=== PATIENT | female | born 1975 ===

== ENCOUNTER → 2019-06-11 12:10 | Outpatient (CLI) | payer MEDICARE, SELFPAY ==
[2019-06-11 12:49] LABS: Add Manual Diff / Slide Review NO; Basophils Absolute Auto 100 /uL (0-100); Eosinophils Absolute Auto 200 /uL (0-450); Eosinophils Percent Auto 2.4 % (2-4); Hematocrit 43.6 % (36-46); Hemoglobin 14.3 g/dL (12.0-16.0); Lymphocytes Absolute Auto 2600 /uL (1100-4500); Lymphocytes Percent Auto 32.4 % (25-40); Mean Corpuscular HGB Conc 32.9 % (30-36); Mean Corpuscular Hemoglobin 29.1 PG (26-34); Mean Corpuscular Volume 88.5 fL (80-100); Monocytes Absolute Auto 700 /uL (0-900); Monocytes Percent Auto 8.5 % (3-14); Neutrophils Absolute Auto 4400 /uL (1500-7000); Neutrophils Percent Auto 55.7 % (50-75); Platelet Count 315 X10^3/uL (150-400); Red Blood Cell Count 4.93 X10^6/uL (4.0-5.2); Red Cell Distribution Width 14.6 % (11.6-14.8); White Blood Cell Count 7.9 X10^3/uL (4.5-11.0)
[2019-06-11 13:38] LABS: Alanine Aminotransferase 53 IU/L (9-52); Albumin Globulin Ratio 1.1 (1.0-2.8); Alkaline Phosphatase 126 U/L (38-126); Aspartate Aminotransferase 53 IU/L (14-36); Bilirubin Total 0.6 mg/dL (0.2-1.3); Blood Urea Nitrogen 11 mg/dL (7-17); Carbon Dioxide 24 mmol/L (22-32); Chloride 106 mmol/L (98-107); Cholesterol 175 mg/dL (140-199); Estimated Glomerular Filt Rate > 60.0 mL/min (>60); Globulin 3.7 g/dL (1.7-4.1); Glucose 106 mg/dL (70-100); HDL Cholesterol 41 mg/dL (40-60); HEMOLYSIS 26 (0-50); LDL Cholesterol Calculated 116 mg/dL (<100); Potassium 4.2 mmol/L (3.4-5.1); Sodium 139 mmol/L (137-145); Total Protein 7.7 g/dL (6.3-8.2); Triglycerides 91 mg/dL (35-150)
== END ==
PROVIDERS: PCP Family Medicine; Visit Provider Family Medicine
DX: E03.9 Hypothyroidism, unspecified (principal)
CPT/HCPCS: 36415; 80053; 80061; 84443; 85025

== ENCOUNTER → 2020-03-23 17:05 | Outpatient (CLI) | payer MEDICARE, SELFPAY ==
[2020-03-23 19:15] LABS: TSH w/ Reflex to FT4 6.07 uIU/mL (0.47-4.68)
[2020-03-24 15:47] LABS: HIV 1 & 2 Ab/Ag 4th Gen Combo NEGATIVE (NEGATIVE)
== END ==
PROVIDERS: PCP Family Medicine; Referring Provider Family Medicine; Visit Provider Family Medicine
DX: Z11.3 Encounter for screening for infections with a predominantly sexual mode of transmission (principal); E03.9 Hypothyroidism, unspecified
CPT/HCPCS: 36415; 84439; 84443; 87389

== ENCOUNTER → 2020-05-25 14:28 | Outpatient (CLI) | payer MEDICARE, SELFPAY ==
[2020-05-28 05:39] LABS: COVID19 Sendout Not Detected (Not Detected)
== END ==
PROVIDERS: PCP Family Medicine; Visit Provider Physician Assistant
DX: R06.02 Shortness of breath (principal)
CPT/HCPCS: 87635

== ENCOUNTER → 2020-05-30 09:53 | Outpatient (CLI) | payer MEDICARE, SELFPAY | PROVIDERS: PCP Family Medicine; Visit Provider Family Medicine | DX: R21 Rash and other nonspecific skin eruption (principal) | CPT/HCPCS: 87070; 87205 ==

== ENCOUNTER 2020-10-28 12:25 | Emergency (ER) | payer MEDICARE, MEDICAID, SELFPAY ==
[2020-10-28 12:43] VITALS: BP 168/88; PULSE 99; RESP 15; TEMP 36.9; O2SAT 98; BMI 61.2
--- NOTE | 2020-10-28 12:56 | PC.NURSE ---
At triage pt was asked how long the rash has been which she stated off and on for a year. Concerning her sore throat she stated it has been months. I asked her how many months it has been which she stated I don't know. I then said do you think it has been a month or more like 9 months which pt then stated I don't know. Pt would not give consent for test if needed, Pt states I don't feel comfortable talking to you about it. When I asked the patient if she was safe where she lives she stated I don't feel comfortable talking to you about it.
--- NOTE | 2020-10-28 14:06 | PC.NURSE ---
Asked to go out and speak with patient about her service dog. Pt reports that her service dog (arrived in a kennel per registration staff) was walking a took a crap on the floor. she states it was an accident. I asked where the dog was and she said she placed it in the car. pt was also questioned as to what type of service the dog performs. She states lots of service. She reported it will bark when I am in danger. Pt asked for the policy that I was holding to review. I handed the policy to the patient and asked her kindly to keep the dog in the car. She reported that the staff at the front registration desk are rude and the ER staff is rude. also states people are rude the way they walk I reassured her that we are following [facility]'s Policy and I am sorry that she feels that the hospital staff is rude. I told her to contact the [facility] if she has any concerns that the Er staff or registration can't answer. I gave her my name. I also informed patient of the wait time and the she should be back shortly. I informed her of patient acuity, ambulances, helicopter and other events that might cause her wait time to change. pt verbalized an understanding of the above.
--- NOTE | 2020-10-28 14:24 | PC.NURSE ---
Addendum entered by Camilla Walter R.N. 10/28/20 14:33: Patients states all of these symptoms have been ongoing since last September when was resting in bed and felt a hand come and grab her neck and then my lungs collapsed. Patient states she has seen her PCP Dr Rodas for the rash and shortness or breath and has finished a course of acyclovir and Amoxicillin but he is not a real doctor because he went to school in [facility] so I need to be seen here. Original Note: During assessment of patient, patient asked will you stand farther away from me I cannot communicate with you if you stand too close. Readjusted across room but explained to patient that need to be able to assess her complaints. Patient then asked Please can you stand with you legs all the way together and not shoulder width apart. Patient stated has had rash, sore throat, and SOB since last September. Has been treated for shingles and scabies and states I thought it was an AIDs rash but I do not drink blood or have sex but I still asked to be tested for AIDs. Patient reported this test was negative. Patient denied itching or pain from rash. Patient would not let me assess her throat, stated I only want the doctor to do that. Patient states I am really here because I need a bacteria test on my skin, a covid test, and my throat swabbed. No visible signs of increased work of breathing, skin dry and pink, patient does not appear to be in any visible distress. Small, scaly rash noted to center of chest and dorsal surface of bilateral hands.
[2020-10-28 15:47] LABS: COVID19 -Nasal RAPID Negative (Negative)
--- NOTE | 2020-10-28 18:56 | ED.SKABFB ---
HPI - Skin/Abscess/Foreign Bdy <PERCY Rainey - Last Filed: 10/28/20 19:34> General Chief complaint: Skin/Abscess/Foreign Body Stated complaint: rash and sob Time Seen by Provider: 10/28/20 14:37 Source: patient Mode of arrival: Ambulatory Limitations: no limitations History of Present Illness HPI narrative: The patient is a 45-year-old nonsmoker with history of schizophrenia and personality disorder who presents with a chief complaint of a rash that is been ongoing for the past several months. She states that she has been treated for scabies, cultures have been taken, also would like a test for coronavirus. She states that she has a sore throat, is also concerned about strep throat. She also is concerned about a rash on her feet, and states that she has a flesh eating bacteria. She denies any fevers, complains of muscle aches and chills. She does mention significant weight gain several years ago, and states that since she has gained 100 lb, her ankles have been slightly swollen. She denies any chest pain, states that she has felt tired. She states that she has been to her primary care provider multiple times. She also complains of bilateral ear pain. Related Data Previous Rx's Medication Instructions Recorded levothyroxine 88 mcg capsule 88 mcg PO DAILY #90 cap 06/17/19 permethrin 5 % topical cream 1 applictn TOP Q14D #120 gram 04/11/20 amoxicillin 875 mg tablet 875 mg PO BID #14 tab 07/20/20 acyclovir 400 mg tablet 400 mg PO QID #40 tab 10/10/20 shingles immunization #1 ea 10/10/20 Allergies Allergy/AdvReac Type Severity Reaction Status Date / Time No Known Drug Allergies Allergy Verified 10/28/20 12:43 Review of Systems <PERCY Rainey - Last Filed: 10/28/20 19:34> Review of Systems Narrative: GENERAL: Denies chills, fatigue, malaise, fever, sweats. HEENT: See HPI RESPIRATORY: See HPI CARDIOVASCULAR: Denies chest pain, palpitations, orthopnea, edema, GASTROINTESTINAL: Denies nausea, vomiting, abdominal pain, diarrhea, constipation, melena. : Denies dysuria, frequency, incontinence, hematuria, urinary retention. MUSCULOSKELETAL: denies weakness, joint pain, or bony pain SKIN: Denies rash, skin lesions, or other NEUROLOGIC: Denies weakness, headache, numbness, change in speech, confusion, seizures, incoordination. PSYCHIATRIC: No concerning psychosocial issues. 12 point review of systems is negative except for those stated above 12 point review of systems is negative except for those stated above Patient History <PERCY Rainey - Last Filed: 10/28/20 19:34> Medical History (Updated 10/28/20 @ 16:09 by PERCY Rainey) Shortness of breath Skin rash Surgical History (Updated 06/27/18 @ 15:55 by Nita Lake) Status post hysterectomy (02/15/10) Status post surgery (10/04/09) Social History Smoking Status: Never smoker alcohol intake: never substance use type: does not use Smoking Status: Never smoker alcohol intake frequency: other Substance Use Type: does not use Exam <PERCY Rainey - Last Filed: 10/28/20 19:34> Narrative Exam Narrative: GENERAL: This is a well-nourished, well-developed patient, in no acute distress HEAD: Atraumatic. Normocephalic. No temporal or scalp tenderness. EYES: Pupils equal round and reactive. Extraocular motions intact. No scleral icterus. No injection or drainage. ENT: Nose without bleeding, purulent drainage or septal hematoma. Throat with erythema, but no tonsillar hypertrophy or exudate. Uvula midline. Airway patent. Bilateral TMs pearly linton NECK: Trachea midline. No JVD or lymphadenopathy. Supple, nontender, no meningeal signs. CARDIOVASCULAR: Regular rate and rhythm RESPIRATORY: Clear to auscultation. Breath sounds equal bilaterally. No wheezes, rales, or rhonchi. No cough. No increased respiratory effort. No axis her muscle use. GASTROINTESTINAL: Abdomen soft, non-tender, nondistended. No hepato-splenomegaly, or palpable masses. No guarding. EXTREMITIES: No clubbing, cyanosis, or edema. No joint tenderness, effusion noted. Positive pedal pulses. Capillary refill less than 2 seconds all toes bilateral feet NEURO: AOx3. SKIN: Exam is rash noted over bilateral forearms and chest. No crusting or drainage noted. No rash on feet noted. Initial Vital Signs Initial Vital Signs: Vital Signs Temperature 98.4 F 10/28/20 12:43 Pulse Rate 99 H 10/28/20 12:43 Respiratory Rate 15 10/28/20 12:43 Blood Pressure 168/88 H 10/28/20 12:43 Pulse Oximetry 98 10/28/20 12:43 <Lety Rivera DO - Last Filed: 10/28/20 19:38> Initial Vital Signs Initial Vital Signs: Vital Signs Temperature 98.4 F 10/28/20 12:43 Pulse Rate 99 H 10/28/20 12:43 Respiratory Rate 15 10/28/20 12:43 Blood Pressure 168/88 H 10/28/20 12:43 Pulse Oximetry 98 10/28/20 12:43 Scores <PERCY Rainey - Last Filed: 10/28/20 19:34> GCS Dada coma scale eye opening: Spontaneous [place] coma scale verbal response: Orientated Dada coma scale motor response: Obey commands Dada coma scale total score: 15 Course <PERCY Rainey - Last Filed: 10/28/20 19:34> Orders Ordered: ED Orders 10/28/20 15:15 COVID19 Stat Throat Culture Stat Wound Culture and Gram Stain Stat Wound Culture and Gram Stain Stat Vital Signs Vital signs: Vital Signs - 8 hr 10/28/20 12:43 Temperature 98.4 F Pulse Rate 99 H Respiratory Rate 15 Blood Pressure 168/88 H Pulse Oximetry 98 <Lety Rivera DO - Last Filed: 10/28/20 19:38> Orders Ordered: ED Orders 10/28/20 15:15 COVID19 Stat Throat Culture Stat Wound Culture and Gram Stain Stat Wound Culture and Gram Stain Stat Vital Signs Vital signs: Vital Signs - 8 hr 10/28/20 12:43 Temperature 98.4 F Pulse Rate 99 H Respiratory Rate 15 Blood Pressure 168/88 H Pulse Oximetry 98 MDM - Skin/Abscess/Foreign Bdy <PERCY Rainey - Last Filed: 10/28/20 19:34> Differential Diagnosis Differential diagnosis: Likely abscess of skin or subcutaneous tissue, cellulitis, eczema and impetigo Lab Data Attestation: I reviewed the patient's lab results. Labs: Lab Results 10/28/20 Range/Units 15:15 COVID-19 PCR Negative (Negative) Point of Care Testing Rapid Strep A Negative MDM Narrative Medical decision making narrative: The patient is a 45-year-old male who presents with a chief complaint of rash, sore throat, ear pain. She has no acute bacterial etiology on exam. She does negative for coronavirus a negative for strep. Throat culture was taken and I discussed that this will result in a few days. She appears overall very well, but does perseverate about flesh eating bacteria, which I see no evidence of. She requested skin cultures which I was able to take, though I discussed that given that she does not have drainage I doubt that anything will come up on them. I encouraged her to follow up with primary care provider, a reached out to his office and they will contact her for an appointment early next week. Discussed at length coming back to the ER for acute concerns. Patient has no questions or concerns upon discharge and states understanding return precautions as well as follow-up care. <Lety Rivera, DO - Last Filed: 10/28/20 19:38> Lab Data Labs: Lab Results 10/28/20 Range/Units 15:15 COVID-19 PCR Negative (Negative) Point of Care Testing Rapid Strep A Negative Discharge Plan Departure Patient Disposition: Home Clinical Impression: Rash Pharyngitis Qualifiers: Pharyngitis/tonsillitis etiology: unspecified etiology Qualified Code(s): J02.9 - Acute pharyngitis, unspecified Instructions: DI for Pharyngitis/Tonsillopharyngitis -- Adult, DI for Viral Pharyngitis Activity Restrictions/Additional Instructions: Thank you for trusting us with your care today. As discussed, your coronavirus test resulted negative. This does not exclude early infection, and please continue current precautions. Your rapid strep also tested negative the throat culture will result in a few days. We will call you if it comes back positive. Your skin cultures will take a few days to come back. Dr Rodas's office will reach out to you with an appointment. I spoke with the nurse Jo Ann today. Please follow-up with primary care next few days. Please back to the ER for acute concerns Prescriptions: No Action levothyroxine 88 mcg capsule 88 mcg PO DAILY Qty: 90 RF: 3 permethrin 5 % cream 1 applictn TOP Q14D Qty: 120 RF: 1 amoxicillin 875 mg tablet 875 mg PO BID Qty: 14 RF: 0 acyclovir 400 mg tablet 400 mg PO QID Qty: 40 RF: 0 (DME) shingles immunization Qty: 1 RF: 0 Referrals: Junior Rodas MD [Primary Care Provider] -
== END 2020-10-28 16:13 | disposition home or self-care (01) ==
PROVIDERS: Emergency Provider Nurse Practitioner Family; PCP Family Medicine
DX: J02.9 Acute pharyngitis, unspecified (principal); R21 Rash and other nonspecific skin eruption
CPT/HCPCS: 87070; 87077; 87147; 87186; 87205; 87635; 87880; 99281; 99283

== ENCOUNTER → 2021-04-19 07:53 | Outpatient (CLI) | payer MEDICARE, MEDICAID, SELFPAY | PROVIDERS: PCP Family Medicine; Visit Provider Physician Assistant | DX: R21 Rash and other nonspecific skin eruption (principal) | CPT/HCPCS: 87070; 87075; 87077; 87147; 87186; 87205 ==

== ENCOUNTER → 2021-06-02 09:04 | Outpatient (CLI) | payer MEDICARE, MEDICAID, SELFPAY ==
[2021-06-02 09:23] LABS: Add Manual Diff / Slide Review NO; Basophils Absolute Auto 100 /uL (0-100); Eosinophils Absolute Auto 200 /uL (0-450); Eosinophils Percent Auto 2.5 % (2-4); Hematocrit 43.1 % (36-46); Hemoglobin 14.2 g/dL (12.0-16.0); Lymphocytes Absolute Auto 2800 /uL (1100-4500); Mean Corpuscular HGB Conc 32.9 % (30-36); Mean Corpuscular Hemoglobin 29.4 PG (26-34); Mean Corpuscular Volume 89.4 fL (80-100); Monocytes Absolute Auto 600 /uL (0-900); Monocytes Percent Auto 6.5 % (3-14); Neutrophils Absolute Auto 5600 /uL (1500-7000); Platelet Count 310 X10^3/uL (150-400); Red Blood Cell Count 4.81 X10^6/uL (4.0-5.2); Red Cell Distribution Width 14.5 % (11.6-14.8); White Blood Cell Count 9.3 X10^3/uL (4.5-11.0)
[2021-06-02 10:23] LABS: Alanine Aminotransferase 41 IU/L (<35); Albumin 3.8 g/dL (3.5-5.0); Albumin Globulin Ratio 1.1 (1.0-2.8); Alkaline Phosphatase 112 U/L (38-126); Aspartate Aminotransferase 44 IU/L (14-36); BUN Creatinine Ratio 26.5 (6-22); Bilirubin Total 0.7 mg/dL (0.2-1.3); Blood Urea Nitrogen 13 mg/dL (7-17); Calcium 9.2 mg/dL (8.4-10.2); Carbon Dioxide 23 mmol/L (22-32); Chloride 106 mmol/L (98-107); Cholesterol 175 mg/dL (140-199); Estimated Glomerular Filt Rate > 60.0 mL/min (>60); Globulin 3.4 g/dL (1.7-4.1); Glucose 100 mg/dL (70-100); HDL Cholesterol 52 mg/dL (40-60); HEMOLYSIS < 15 (0-50); LDL Cholesterol Calculated 105 mg/dL (<100); Potassium 4.4 mmol/L (3.4-5.1); Sodium 136 mmol/L (137-145); Total Protein 7.2 g/dL (6.3-8.2); Triglycerides 91 mg/dL (35-150)
[2021-06-02 11:00] LABS: Hepatitis B Surface Antigen NEGATIVE s/c (NEGATIVE)
[2021-06-02 11:04] LABS: HIV 1 & 2 Ab/Ag 4th Gen Combo NEGATIVE (NEGATIVE)
[2021-06-02 11:25] LABS: Free T4, Direct Thyroxine 0.97 ng/dL (0.78-2.19)
== END ==
PROVIDERS: PCP Family Medicine; Referring Provider Family Medicine; Visit Provider Family Medicine
DX: E03.9 Hypothyroidism, unspecified (principal); E66.01 Morbid (severe) obesity due to excess calories; R21 Rash and other nonspecific skin eruption; Z68.43 Body mass index [BMI] 50.0-59.9, adult
CPT/HCPCS: 36415; 80053; 80061; 84439; 84443; 85025; 87340; 87389

== ENCOUNTER → 2021-10-29 14:40 | Outpatient (CLI) | payer MEDICARE, SELFPAY ==
[2021-10-29 15:23] LABS: COVID19 -Nasal RAPID Negative (Negative)
== END ==
PROVIDERS: PCP Family Medicine; Referring Provider Physician Assistant; Visit Provider Physician Assistant
DX: R05.9 Cough, unspecified (principal); R06.02 Shortness of breath; R53.83 Other fatigue
CPT/HCPCS: 87635

== ENCOUNTER 2021-11-03 10:00 | Emergency (ER) | payer MEDICARE, SELFPAY ==
[2021-11-03 10:03] VITALS: BP 164/100; PULSE 99; RESP 22; TEMP 36.6; O2SAT 96; BMI 62.6
--- NOTE | 2021-11-03 10:07 | DI.RAD.S_ITS ---
PROCEDURE: XR CHEST 2V INDICATIONS: chest congestion / cough. TECHNIQUE: 2 views of the chest were acquired. COMPARISON: [facility], , CHEST 2 VIEW, 05/31/2008, 20:13. FINDINGS: Surgical changes and devices: None. Lungs and pleura: Lungs are clear. No pleural effusions or pneumothorax. Mediastinum: Mediastinal contours are normal. Heart size is normal. Bones and chest wall: No suspicious bony abnormalities. Persistent slight elevation of the right diaphragm. IMPRESSION: No acute cardiopulmonary abnormality. Dictated by: Efren Bennett M.D. on 11/03/2021 at 11:13 Approved by: Efren Bennett M.D. on 11/03/2021 at 11:13
[2021-11-03 11:15] VITALS: BP 134/82; PULSE 82; RESP 15; O2SAT 95
[2021-11-03 11:30] VITALS: BP 137/77; PULSE 77; RESP 13; O2SAT 95
[2021-11-03] MEDS: ACETAMINOPHEN 325 MG TABLET 975 MG PO (11:35)
[2021-11-03 11:38] LABS: Adenovirus Not Detected (Not Detect); B. parapertussis Not Detected (Not Detecte); Bordetella pertussis Not Detected (Not Detecte); Chlamydophila pneumoniae Not Detected (Not Detect); Coronavirus 229E Not Detected (Not Detect); Coronavirus HKU1 Not Detected (Not Detect); Coronavirus NL 63 Not Detected (Not Detect); Coronavirus OC43 Not Detected (Not Detect); Human Metapneumovirus Not Detected (Not Detect); Human Rhinovirus/Enterovirus Not Detected (Not Detect); Influenza A Not Detected (Not Detect); Influenza B Not Detected (Not Detect); Mycoplasma pneumoniae Not Detected (Not Detect); Parainfluenza Virus 1 Not Detected (Not Detect); Parainfluenza Virus 2 Not Detected (Not Detect); Parainfluenza Virus 3 Not Detected (Not Detect); Parainfluenza Virus 4 Not Detected (Not Detect); Respiratory Syncytial Virus Detected (Not Detect); SARS- CoV-2 Not Detected (Not Detecte)
[2021-11-03 12:00] VITALS: BP 116/71; PULSE 71; RESP 21; O2SAT 92
--- NOTE | 2021-11-03 12:12 | ED.SOB ---
HPI - SOB/Dyspnea <Gian Long PA-C - Last Filed: 11/03/21 19:29> General Chief Complaint: Shortness of Breath/Dyspnea Stated Complaint: Poss pneumonia, trouble breathing Time Seen by Provider: 11/03/21 11:55 Source: patient Mode of arrival: Ambulatory Limitations: no limitations History of Present Illness HPI Narrative: Patient is a 46-year-old female presenting to the emergency department today for an evaluation of shortness of breath. Patient states that she began feeling sick approximately 2 weeks ago. She was seen at the walk-in clinic on Saturday and had a negative COVID test. She presents to the emergency department today with congestion, dyspnea, fever, cough, rhinorrhea, shortness of breath with activity, headache, rash, chills, and 1 episode of nonbloody nonbilious vomiting this morning. She denies abdominal pain, diarrhea, hematemesis, hemoptysis, hematochezia, dysuria, hematuria. No other concerns voiced at this time. Patient states that she has spent time with her grandchild who has been sick recently. Related Data Previous Rx's Medication Instructions Recorded levothyroxine 112 mcg capsule 112 mcg PO DAILY #90 cap 10/09/21 Allergies Allergy/AdvReac Type Severity Reaction Status Date / Time No Known Drug Allergies Allergy Verified 11/03/21 10:06 Review of Systems <Gian Long PA-C - Last Filed: 11/03/21 19:29> Constitutional Constitutional: Reports chills, Denies fatigue, Reports fever(s), Denies frequent falls and Denies weakness Eyes Eyes: Denies loss of vision ENT Ears, Nose, Mouth, and Throat: Denies change in voice, Denies dizziness, Denies ear discharge, Denies otalgia, Reports nasal congestion, Reports nasal discharge (Runny nose), Denies neck pain, Reports sore throat and Denies throat swelling Cardiovascular Cardiovascular: Denies chest pain, Denies diaphoresis, Denies irregular heart rhythm, Denies lightheadedness, Denies palpitations, Reports dyspnea on exertion and Denies orthopnea Respiratory Respiratory: Reports cough, Reports dyspnea on exertion, Denies wheezing and Reports other (Pain with deep inspiration) Gastrointestinal Gastrointestinal: Denies abdominal pain, Denies change in bowel habits, Denies diarrhea, Denies nausea and Reports vomiting Genitourinary Genitourinary: Denies hematuria, Denies flank pain, Denies urinary incontinence and Denies urinary urgency Musculoskeletal Musculoskeletal: Denies back pain, Denies muscle weakness, Denies neck pain, Denies numbness and Denies tingling Integumentary/Breasts Skin/Breast: Denies pruritus, Denies erythema, Reports rash and Denies wounds Neurologic Neurologic: Denies behavioral changes, Denies confusion, Denies dizziness, Denies frequent falls, Denies loss of vision, Denies numbness, Denies tingling and Denies weakness Psychiatric Psychiatric: Denies behavioral changes and Denies confusion Endocrine Endocrine: Denies fatigue and Denies palpitations Allergic/Immunologic Allergic/Immunologic: Denies throat swelling and Denies wheezing Patient History <Gian Long PA-C - Last Filed: 11/03/21 19:29> Medical History Shortness of breath Skin rash Surgical History Status post hysterectomy (02/15/10) Status post surgery (10/04/09) Social History Smoking Status: Never smoker alcohol intake: never substance use type: does not use Smoking Status: Never smoker alcohol intake frequency: other Substance Use Type: does not use Exam <Gian Long PA-C - Last Filed: 11/03/21 19:29> Narrative Exam Narrative: GENERAL: 46 year old patient appears stated age. Well-developed patient, in mild distress. HEAD: Atraumatic. Normocephalic. EYES: Pupils equal round and reactive. Extraocular motions intact. No scleral icterus. No injection or drainage. ENT: Nose without bleeding, purulent drainage. Throat with mild erythema, no tonsillar hypertrophy or exudate. Airway patent. Uvula midline. No abscess formation appreciated throughout the oral mucosa. NECK: Trachea midline. Non tender CARDIOVASCULAR: Regular rate and rhythm without murmurs, gallops, or rubs. RESPIRATORY: Clear to auscultation. Breath sounds equal bilaterally. No wheezes, rales, or rhonchi. GASTROINTESTINAL: Abdomen soft, non-tender, nondistended. EXTREMITIES: No edema or joint tenderness. BACK: Nontender without deformity or crepitance. No flank tenderness. NEURO: AOx3. SKIN: No rash or erythema of visible areas Initial Vital Signs Initial Vital Signs: Vital Signs Temperature 97.8 F 11/03/21 10:03 Pulse Rate 99 H 11/03/21 10:03 Respiratory Rate 22 11/03/21 10:03 Blood Pressure 164/100 H 11/03/21 10:03 Pulse Oximetry 96 11/03/21 10:03 <Palma Mark DO - Last Filed: 11/04/21 06:55> Initial Vital Signs Initial Vital Signs: Vital Signs Temperature 97.8 F 11/03/21 10:03 Pulse Rate 99 H 11/03/21 10:03 Respiratory Rate 22 11/03/21 10:03 Blood Pressure 164/100 H 11/03/21 10:03 Pulse Oximetry 96 11/03/21 10:03 Course <Gian Long PA-C - Last Filed: 11/03/21 19:29> Course Course Narrative: Respiratory panel, chest x-ray, rapid strep ordered. Orders Ordered: Discontinued Medications Acetaminophen (Acetaminophen 325 Mg Tablet) 975 mg PO NOW ONE Stop: 11/03/21 11:33 Last Admin: 11/03/21 11:35 Dose: 975 mg Documented by: JADA Vital Signs Vital signs: Vital Signs - 8 hr 11/03/21 11:30 11/03/21 12:00 11/03/21 12:30 Pulse Rate 77 71 76 Respiratory Rate 13 21 13 Blood Pressure 137/77 116/71 126/74 Pulse Oximetry 95 92 95 <Palma Mark DO - Last Filed: 11/04/21 06:55> Orders Ordered: Discontinued Medications Acetaminophen (Acetaminophen 325 Mg Tablet) 975 mg PO NOW ONE Stop: 11/03/21 11:33 Last Admin: 11/03/21 11:35 Dose: 975 mg Documented by: JADA Vital Signs Vital signs: Vital Signs - 8 hr 11/03/21 11:30 11/03/21 12:00 11/03/21 12:30 Pulse Rate 77 71 76 Respiratory Rate 13 21 13 Blood Pressure 137/77 116/71 126/74 Pulse Oximetry 95 92 95 MDM - SOB/Dyspnea <MELLO Perez Last Filed: 11/03/21 19:29> Lab Data Labs: Lab Results 11/03/21 Range/Units 10:10 Chlamy pneumoniae PCR Not detected (Not Detect) Adenovirus (PCR) Not detected (Not Detect) B. pertussis DNA (PCR) Not detected (Not Detecte) B.parapertussis DNA PCR Not detected (Not Detecte) Coronavirus OC43 (PCR) Not detected (Not Detect) Coronavirus HKU1 (PCR) Not detected (Not Detect) Coronavirus 229E (PCR) Not detected (Not Detect) SARS-CoV-2 (PCR) Not detected (Not Detecte) Coronavirus NL63 (PCR) Not detected (Not Detect) Human Metapneumovir PCR Not detected (Not Detect) Influenza Type A (PCR) Not detected (Not Detect) Influenza Type B (PCR) Not detected (Not Detect) M. pneumoniae (PCR) Not detected (Not Detect) Parainfluenza 1 (PCR) Not detected (Not Detect) Parainfluenza 2 (PCR) Not detected (Not Detect) Parainfluenza 3 (PCR) Not detected (Not Detect) Parainfluenza 4 (PCR) Not detected (Not Detect) RSV (PCR) Detected H (Not Detect) Entero/Rhino (PCR) Not detected (Not Detect) Point of Care Testing Rapid Strep A Negative Imaging Data Chest x-ray: Radiologist's Impression: PROCEDURE:? XR CHEST 2V ? INDICATIONS:? chest congestion / cough. ? TECHNIQUE:? 2 views of the chest were acquired.? ? COMPARISON:? [facility], CHEST 2 VIEW, 05/31/2008, 20:13. ? FINDINGS:? ? Surgical changes and devices:? None.? ? Lungs and pleura:? Lungs are clear.? No pleural effusions or pneumothorax.? ? Mediastinum:? Mediastinal contours are normal.? Heart size is normal.? ? Bones and chest wall:? No suspicious bony abnormalities.? Persistent slight elevation of the right diaphragm.? ? IMPRESSION:? No acute cardiopulmonary abnormality. ? ? Dictated by: Efren Bennett M.D. on 11/03/2021 at 11:13 ? ? Approved by: Efren Bennett M.D. on 11/03/2021 at 11:13 ? MDM Narrative Medical decision making narrative: To consider COVID-19 versus upper respiratory infection versus strep pharyngitis versus viral pharyngitis versus pneumonia. Overall physical examination history are reassuring. COVID test on Saturday walk-in clinic was negative, additionally rapid strep returned negative here in the emergency department today. Discussed the results of respiratory panel with patient and discussed diagnosis RSV infection. At this time patient feels comfortable being discharged home after discussion proper symptomatic treatment. Strict return precautions discussed with patient prior to discharge. <Palma Mark, DO - Last Filed: 11/04/21 06:55> Lab Data Labs: Lab Results 11/03/21 Range/Units 10:10 Chlamy pneumoniae PCR Not detected (Not Detect) Adenovirus (PCR) Not detected (Not Detect) B. pertussis DNA (PCR) Not detected (Not Detecte) B.parapertussis DNA PCR Not detected (Not Detecte) Coronavirus OC43 (PCR) Not detected (Not Detect) Coronavirus HKU1 (PCR) Not detected (Not Detect) Coronavirus 229E (PCR) Not detected (Not Detect) SARS-CoV-2 (PCR) Not detected (Not Detecte) Coronavirus NL63 (PCR) Not detected (Not Detect) Human Metapneumovir PCR Not detected (Not Detect) Influenza Type A (PCR) Not detected (Not Detect) Influenza Type B (PCR) Not detected (Not Detect) M. pneumoniae (PCR) Not detected (Not Detect) Parainfluenza 1 (PCR) Not detected (Not Detect) Parainfluenza 2 (PCR) Not detected (Not Detect) Parainfluenza 3 (PCR) Not detected (Not Detect) Parainfluenza 4 (PCR) Not detected (Not Detect) RSV (PCR) Detected H (Not Detect) Entero/Rhino (PCR) Not detected (Not Detect) Point of Care Testing Rapid Strep A Negative Discharge Plan Departure Patient Disposition: Home Clinical Impression: Acute upper respiratory infection, RSV infection Instructions: DI for Viral Upper Respiratory Infection -- Adult Activity Restrictions/Additional Instructions: *You have been diagnosed with viral upper respiratory infection, RSV infection *What to do: *Please continue to take your regular medications as directed. [ ] New medication prescriptions sent to your pharmacy: [ ] [ ] New medication written as a paper prescription [X] No new medications given *Please follow up with your primary care provider in 2-3 days, call for an appointment. Let them know you were seen in the Emergency Department and that we ask that you be seen in follow up. We will electronically transmit a record of today's note if your PCP is in our system *If you do not have a primary care provider please contact the [facility] Resource line at [phone]. They will ask some questions about your medical history and help get you set up with a doctor in the community. *Return to Emergency Department if you should have any new, worsening or concerning symptoms, such as fever greater than 101 F, shaking chills, worsening shortness of breath, chest pain, persistent vomiting or other bothersome symptoms. Prescriptions: No Action levothyroxine 112 mcg capsule 112 mcg PO DAILY Qty: 90 3RF Referrals: Antwan Phipps DO [Primary Care Provider] - <Palma Mark DO - Last Filed: 11/04/21 06:55> Cosign ED Attending Sara Attestation: I was immediately available in the department for consultation. Documentation has been reviewed. I agree with assessment and plan.
[2021-11-03 12:30] VITALS: BP 126/74; PULSE 76; RESP 13; O2SAT 95
== END 2021-11-03 12:50 | disposition home or self-care (01) ==
PROVIDERS: Emergency Medicine; Emergency Provider Physician Assistant; PCP Family Medicine
DX: J06.9 Acute upper respiratory infection, unspecified (principal); B97.4 Respiratory syncytial virus as the cause of diseases classified elsewhere
CPT/HCPCS: 71046; 87633; 87880; 99284

== ENCOUNTER 2022-04-22 10:18 | Emergency (ER) | payer MEDICARE, MEDICAID, SELFPAY ==
[2022-04-22] VITALS (7 sets, daily range): BP systolic 122–154; BP diastolic 79–94; PULSE 65–77; RESP 18–20; TEMP 36.1; O2SAT 95–97; BMI 63.9
--- NOTE | 2022-04-22 10:29 | DI.RAD.S_ITS ---
PROCEDURE: XR CHEST 1V INDICATIONS: cough TECHNIQUE: One view of the chest was acquired. COMPARISON: [facility], CR, XR CHEST 2V, 11/03/2021, 10:47. FINDINGS: Surgical changes and devices: None. Lungs and pleura: Lungs are clear. No pleural effusions or pneumothorax. Mediastinum: Mediastinal contours appear normal. Heart size is normal. Bones and chest wall: No suspicious bony lesions. Overlying soft tissues appear unremarkable. IMPRESSION: No acute cardiopulmonary findings Approved by: Ruben Lindsey M.D. on 04/22/2022 at 10:44
--- NOTE | 2022-04-22 10:37 | ED.SOB ---
HPI - SOB/Dyspnea General Chief Complaint: Upper Respiratory Symptoms Stated Complaint: SOB, cough, nose bleeds x 5 days Time Seen by Provider: 04/22/22 10:21 Source: patient Mode of arrival: Ambulatory History of Present Illness HPI Narrative: Patient is a 46-year-old female history of hypothyroid, schizophrenia, presenting today with ongoing shortness of breath and cough. She has had some body aches as well. She says been going on for about 1 week. She has some nasal congestion. She has more shortness of breath with exertion and some chest burning. Not really any worse today but she says it is just not getting any better. He denies any recent travel. She denies significant shortness of breath with exertion she says she just notices it but is able still to go up a flight of stairs. Related Data Previous Rx's Medication Instructions Recorded levothyroxine 112 mcg capsule 112 mcg PO DAILY #90 cap 10/09/21 fluconazole 150 mg tablet 150 mg PO ONCE #4 tab 03/29/22 (Diflucan) Allergies Allergy/AdvReac Type Severity Reaction Status Date / Time No Known Drug Allergies Allergy Verified 04/22/22 10:31 Review of Systems Review of Systems Narrative: GENERAL: Denies chills, fatigue, malaise, fever, sweats, travel HEENT: Denies sinus pain, ear pain, sore throat, difficulty swallowing, neck pain RESPIRATORY: See HPI CARDIOVASCULAR: Denies chest pain, palpitations, orthopnea, edema GASTROINTESTINAL: Denies nausea, vomiting, abdominal pain, diarrhea, constipation, melena. : Denies dysuria, frequency, incontinence, hematuria, urinary retention, flank pain. MUSCULOSKELETAL: Denies weakness, joint pain, or bony pain SKIN: No rash, no erythema, no pruritus NEUROLOGIC: Denies weakness, dizziness, headache, numbness, change in speech, confusion PSYCHIATRIC: No concerning psychosocial issues. 12 point review of systems is negative except for those stated above and HPI Patient History Medical History Candidiasis Encounter for medical clearance for patient hold Melasma Shortness of breath Skin rash Surgical History Status post hysterectomy (02/15/10) Status post surgery (10/04/09) Social History Smoking Status: Never smoker alcohol intake: never substance use type: does not use Smoking Status: Never smoker alcohol intake frequency: other Substance Use Type: does not use Exam Initial Vital Signs Initial Vital Signs: Vital Signs Temperature 97.0 F L 04/22/22 10:29 Pulse Rate 77 04/22/22 10:29 Respiratory Rate 18 04/22/22 10:29 Blood Pressure 154/90 H 04/22/22 10:29 Pulse Oximetry 97 04/22/22 10:29 GENERAL: Alert 46-year-old female BMI 63 in no acute distress. HEENT: Head atraumatic,EOMI, pupils reactive, face symmetric, moist] mucous membranes CARDIOVASCULAR: Regular rate and rhythm without murmurs, rubs or gallops. RESPIRATORY: Breath sounds equal bilaterally, no wheezes rales or rhonchi. Speaks in full sentences no respiratory distress EXTREMITIES: Normal range of motion, no clubbing or edema. Neurovascularly intact NEUROLOGICAL: Alert and oriented x4.Normal gait and speech SKIN: Warm, dry, no laceration, no petechiae, no rashes or lesions. Course Orders Ordered: ED Orders 04/22/22 10:29 XR chest 1V Stat EKG-12 Lead Stat 04/22/22 10:30 Respiratory Panel (Film Array) Stat 04/22/22 11:30 Complete Blood Count AUTO DIFF Stat Comprehensive Metabolic Panel Stat Lipase Stat NT-proBNP (BNP-Adult 18+) Stat Troponin & CK Cardiac Panel Stat Vital Signs Vital signs: Vital Signs - 8 hr 04/22/22 10:29 04/22/22 11:10 04/22/22 11:30 Temperature 97.0 F L Pulse Rate 77 75 69 Respiratory Rate 18 Blood Pressure 154/90 H Pulse Oximetry 97 96 95 04/22/22 11:40 04/22/22 12:00 04/22/22 12:30 Temperature Pulse Rate 77 65 68 Respiratory Rate 20 Blood Pressure 122/94 H 149/87 H 140/79 Pulse Oximetry 96 97 97 04/22/22 13:00 Temperature Pulse Rate 69 Respiratory Rate Blood Pressure Pulse Oximetry 97 MDM - SOB/Dyspnea Lab Data Result diagrams: 04/22/22 11:30 04/22/22 11:30 Labs: Lab Results 04/22/22 04/22/22 04/22/22 Range/Units 10:30 11:30 11:30 WBC 8.9 (4.5-11.0) X10^3/uL RBC 4.75 (4.0-5.2) X10^6/uL Hgb 14.3 (12.0-16.0) g/dL Hct 42.4 (36-46) % MCV 89.1 (80-100) fL MCH 30.1 (26-34) PG MCHC 33.8 (30-36) % RDW 14.1 (11.6-14.8) % Plt Count 289 (150-400) X10^3/uL Neut % (Auto) 56.2 (50-75) % Lymph % (Auto) 29.1 (25-40) % [place] % (Auto) 7.1 (3-14) % Eos % (Auto) 6.7 H (2-4) % Baso % (Auto) 0.9 (0-2) % Neut # (Auto) 5000 (0610-3386) /uL Lymph # (Auto) 2600 (2057-6185) /uL [place] # (Auto) 600 (0-900) /uL Eos # (Auto) 600 H (0-450) /uL Baso # (Auto) 100 (0-100) /uL Sodium 138 (137-145) mmol/L Potassium 4.1 (3.4-5.1) mmol/L Chloride 105 (98-107) mmol/L Carbon Dioxide 31 (22-32) mmol/L BUN 13 (7-17) mg/dL Creatinine 0.57 (0.52-1.04) mg/dL Estimated GFR > 60 (>60) mL/min BUN/Creatinine Ratio 22.8 H (6-22) Glucose 96 (70-100) mg/dL Calcium 8.6 (8.4-10.2) mg/dL Total Bilirubin 0.4 (0.2-1.3) mg/dL AST 40 H (14-36) IU/L ALT 39 H (<35) IU/L Alkaline Phosphatase 100 (38-126) U/L Total Creatine Kinase 56 (30-135) U/L CK-MB (CK-2) TNP CK-MB (CK-2) Rel Index TNP Troponin I < 0.012 (0.01-0.034) ng/mL NT-Pro-B Natriuret Pep 146 H (<125) pg/mL Total Protein 7.8 (6.3-8.2) g/dL Albumin 4.0 (3.5-5.0) g/dL Globulin 3.8 (1.7-4.1) g/dL Albumin/Globulin Ratio 1.1 (1.0-2.8) Lipase 44 (23-300) U/L Chlamy pneumoniae PCR Not detected (Not Detect) Adenovirus (PCR) Not detected (Not Detect) B. pertussis DNA (PCR) Not detected (Not Detecte) B.parapertussis DNA PCR Not detected (Not Detecte) Coronavirus OC43 (PCR) Not detected (Not Detect) Coronavirus HKU1 (PCR) Detected H (Not Detect) Coronavirus 229E (PCR) Not detected (Not Detect) SARS-CoV-2 (PCR) Not detected (Not Detecte) Coronavirus NL63 (PCR) Not detected (Not Detect) Human Metapneumovir PCR Not detected (Not Detect) Influenza Type A (PCR) Not detected (Not Detect) Influenza Type B (PCR) Not detected (Not Detect) M. pneumoniae (PCR) Not detected (Not Detect) Parainfluenza 1 (PCR) Not detected (Not Detect) Parainfluenza 2 (PCR) Not detected (Not Detect) Parainfluenza 3 (PCR) Not detected (Not Detect) Parainfluenza 4 (PCR) Not detected (Not Detect) RSV (PCR) Not detected (Not Detect) Entero/Rhino (PCR) Not detected (Not Detect) Imaging Data Chest x-ray: Radiologist's Impression: [address] [id number] XRay Report Signed Patient: Julia Morris MR#: [id number] : 1975 Acct:[id number] Age/Sex: 46 / F Date of Service: 04/22/22 Loc: ED Accession Number: [id number] ?? Procedure: XR chest 1V Ordering Provider: Palma Mark D.O. PROCEDURE:? XR CHEST 1V ? INDICATIONS:? cough ? TECHNIQUE:? One view of the chest was acquired.? ? COMPARISON:? [facility], , XR CHEST 2V, 11/03/2021, 10:47. ? FINDINGS:? ? Surgical changes and devices:? None.? ? Lungs and pleura:? Lungs are clear.? No pleural effusions or pneumothorax.? ? Mediastinum:? Mediastinal contours appear normal.? Heart size is normal.? ? Bones and chest wall:? No suspicious bony lesions.? Overlying soft tissues appear unremarkable.? ? IMPRESSION:? No acute cardiopulmonary findings ? ? ? Approved by: Ruben Lindsey M.D. on 04/22/2022 at 10:44? ECG Data Interpretation: Normal sinus rhythm rate 68 AK interval 174 QRS 88 QTC 406 Q-wave noted in lead 3 with T-wave inversion, similar to previous EKG in 2012. MDM Narrative Medical decision making narrative: Patient overall appears well. Respiratory panel is positive for coronavirus a. She is not hypoxic chest x-ray was negative a blood work the any other abnormalities. She also thinks she may have been bit by ticks he has a scab on her right abdomen. She did not see the take quite her she did not pull a tick off of her she is not before there are no tics. Her P does have dogs. At this time it is a healing scab there is no target lesion there is no erythema highly unlikely to be a tic bite. Patient is not hypoxic she needs no antibiotics close follow-up and supportive care only. Discharge Plan Departure Patient Disposition: Home Clinical Impression: Coronavirus infection Instructions: DI for Viral Upper Respiratory Infection -- Adult Activity Restrictions/Additional Instructions: *You have been diagnosed with upper respiratory infection, a coronavirus, your COVID is negative *What to do: This will still take time. Monitor for fever. You may have a lingering cough. Increase fluid intake. No antibiotics at this time *Continue to take medications as directed Tylenol 650 mg 3 times a day if needed for pain or fever Ibuprofen 600 mg every 6 hours if needed for pain or fever *Follow up with your primary care provider in 2-3 days or call [phone] *Return to ER if you should have persistent cough, increasing shortness of breath or any new, worsening or concerning symptoms Prescriptions: No Action levothyroxine 112 mcg capsule 112 mcg PO DAILY Qty: 90 3RF fluconazole [Diflucan] 150 mg tablet 150 mg PO ONCE Qty: 4 0RF Rx Instructions: as a single dose. repeat in 1 week Referrals: Antwan Phipps, [Primary Care Provider] -
--- NOTE | 2022-04-22 10:46 | PC.NURSE ---
pt requested to not have the heart monitor attached to her.
--- NOTE | 2022-04-22 11:28 | PC.NURSE ---
deferred to Dr. sotelo
[2022-04-22 11:47] LABS: Adenovirus Not Detected (Not Detect); B. parapertussis Not Detected (Not Detecte); Bordetella pertussis Not Detected (Not Detecte); Chlamydophila pneumoniae Not Detected (Not Detect); Coronavirus 229E Not Detected (Not Detect); Coronavirus HKU1 Detected (Not Detect); Coronavirus NL 63 Not Detected (Not Detect); Coronavirus OC43 Not Detected (Not Detect); Human Metapneumovirus Not Detected (Not Detect); Human Rhinovirus/Enterovirus Not Detected (Not Detect); Influenza A Not Detected (Not Detect); Influenza B Not Detected (Not Detect); Mycoplasma pneumoniae Not Detected (Not Detect); Parainfluenza Virus 1 Not Detected (Not Detect); Parainfluenza Virus 2 Not Detected (Not Detect); Parainfluenza Virus 3 Not Detected (Not Detect); Parainfluenza Virus 4 Not Detected (Not Detect); Respiratory Syncytial Virus Not Detected (Not Detect); SARS- CoV-2 Not Detected (Not Detecte)
[2022-04-22 12:08] LABS: Add Manual Diff / Slide Review NO; Basophils Absolute Auto 100 /uL (0-100); Basophils Percent Auto 0.9 % (0-2); Eosinophils Absolute Auto 600 /uL (0-450); Eosinophils Percent Auto 6.7 % (2-4); Hematocrit 42.4 % (36-46); Hemoglobin 14.3 g/dL (12.0-16.0); Lymphocytes Absolute Auto 2600 /uL (1100-4500); Lymphocytes Percent Auto 29.1 % (25-40); Mean Corpuscular HGB Conc 33.8 % (30-36); Mean Corpuscular Hemoglobin 30.1 PG (26-34); Mean Corpuscular Volume 89.1 fL (80-100); Monocytes Absolute Auto 600 /uL (0-900); Monocytes Percent Auto 7.1 % (3-14); Neutrophils Absolute Auto 5000 /uL (1500-7000); Neutrophils Percent Auto 56.2 % (50-75); Platelet Count 289 X10^3/uL (150-400); Red Blood Cell Count 4.75 X10^6/uL (4.0-5.2); Red Cell Distribution Width 14.1 % (11.6-14.8); White Blood Cell Count 8.9 X10^3/uL (4.5-11.0)
[2022-04-22 12:13] LABS: Alanine Aminotransferase 39 IU/L (<35); Albumin Globulin Ratio 1.1 (1.0-2.8); Alkaline Phosphatase 100 U/L (38-126); Aspartate Aminotransferase 40 IU/L (14-36); BUN Creatinine Ratio 22.8 (6-22); Bilirubin Total 0.4 mg/dL (0.2-1.3); Blood Urea Nitrogen 13 mg/dL (7-17); Calcium 8.6 mg/dL (8.4-10.2); Carbon Dioxide 31 mmol/L (22-32); Chloride 105 mmol/L (98-107); Creatine Kinase 56 U/L (30-135); Estimated Glomerular Filt Rate > 60 mL/min (>60); Globulin 3.8 g/dL (1.7-4.1); Glucose 96 mg/dL (70-100); HEMOLYSIS < 15 (0-50); Lipase 44 U/L (23-300); Potassium 4.1 mmol/L (3.4-5.1); Sodium 138 mmol/L (137-145); Total Protein 7.8 g/dL (6.3-8.2)
[2022-04-22 12:25] LABS: NT-proBNP (BNP-Adult 18+) 146 pg/mL (<125); Troponin I < 0.012 ng/mL (0.01-0.034)
--- NOTE | 2022-04-22 13:17 | PC.NURSE ---
Patient requesting to leave prior to discharge papers. Reports she will come back for paperwork
== END 2022-04-22 13:30 | disposition home or self-care (01) ==
PROVIDERS: Emergency Provider Emergency Medicine; PCP Family Medicine
DX: J06.9 Acute upper respiratory infection, unspecified (principal); B34.2 Coronavirus infection, unspecified; Z20.822 Contact with and (suspected) exposure to COVID-19
CPT/HCPCS: 36415; 71045; 80053; 82550; 83690; 83880; 84484; 85025; 87633; 93005; 99283

== ENCOUNTER → 2023-02-23 11:10 | Outpatient (CLI) | payer MEDICARE, MEDICAID, SELFPAY ==
[2023-02-26 03:04] LABS: HIV 1 & 2 Ab/Ag 4th Gen Combo NEGATIVE (NEGATIVE)
== END ==
PROVIDERS: PCP Family Medicine; Referring Provider Family Medicine; Visit Provider Family Medicine
DX: Z72.51 High risk heterosexual behavior (principal)
CPT/HCPCS: 36415; 87389

== ENCOUNTER → 2023-02-26 07:20 | Outpatient (CLI) | payer MEDICARE, MEDICAID, SELFPAY ==
[2023-02-26 08:42] LABS: Cholesterol 173 mg/dL (140-199); HDL Cholesterol 51 mg/dL (40-60); LDL Cholesterol Calculated 104 mg/dL (<100); Triglycerides 92 mg/dL (35-150)
== END ==
PROVIDERS: PCP Family Medicine; Referring Provider Family Medicine; Visit Provider Family Medicine
DX: E03.9 Hypothyroidism, unspecified (principal); E66.01 Morbid (severe) obesity due to excess calories; Z13.6 Encounter for screening for cardiovascular disorders; Z13.9 Encounter for screening, unspecified; Z68.44 Body mass index [BMI] 60.0-69.9, adult
CPT/HCPCS: 36415; 80061

== ENCOUNTER → 2023-09-16 11:17 | Outpatient (CLI) | payer MEDICARE, MEDICAID, SELFPAY ==
[2023-09-16 12:09] LABS: Add Manual Diff / Slide Review NO; Basophils Absolute Auto 100 /uL (0-100); Basophils Percent Auto 0.8 % (0-2); Eosinophils Absolute Auto 200 /uL (0-450); Eosinophils Percent Auto 2.5 % (2-4); Hematocrit 42.9 % (36-46); Hemoglobin 14.2 g/dL (12.0-16.0); Lymphocytes Absolute Auto 2800 /uL (1100-4500); Lymphocytes Percent Auto 31.9 % (25-40); Mean Corpuscular HGB Conc 33.1 % (30-36); Mean Corpuscular Volume 90.6 fL (80-100); Monocytes Absolute Auto 700 /uL (0-900); Monocytes Percent Auto 7.7 % (3-14); Neutrophils Absolute Auto 5000 /uL (1500-7000); Neutrophils Percent Auto 57.1 % (50-75); Platelet Count 309 X10^3/uL (150-400); Red Blood Cell Count 4.74 X10^6/uL (4.0-5.2); Red Cell Distribution Width 13.8 % (11.6-14.8); White Blood Cell Count 8.7 X10^3/uL (4.5-11.0)
[2023-09-16 12:19] LABS: Hemoglobin A1C% w Est Avg Glu 5.6 % (4.0-6.0)
[2023-09-16 12:29] LABS: Alanine Aminotransferase 34 IU/L (<35); Albumin Globulin Ratio 1.1 (1.0-2.8); Alkaline Phosphatase 94 U/L (38-126); Aspartate Aminotransferase 34 IU/L (14-36); BUN Creatinine Ratio 26.2 (6-22); Bilirubin Total 0.6 mg/dL (0.2-1.3); Blood Urea Nitrogen 16 mg/dL (7-17); Calcium 9.4 mg/dL (8.4-10.2); Carbon Dioxide 28 mmol/L (22-32); Chloride 103 mmol/L (98-107); Estimated Glomerular Filt Rate > 60 mL/min (>60); Globulin 3.8 g/dL (1.7-4.1); Glucose 98 mg/dL (70-100); HEMOLYSIS < 15 (0-50); Potassium 4.3 mmol/L (3.4-5.1); Sodium 137 mmol/L (137-145); Total Protein 7.8 g/dL (6.3-8.2)
[2023-09-16 12:47] LABS: Free T4, Direct Thyroxine 1.04 ng/dL (0.78-2.19)
[2023-09-16 13:01] LABS: Thyroid Stimulating Hormone 5.15 uIU/mL (0.47-4.68)
[2023-09-16 14:30] LABS: Creatinine Urine Random 158.6 mg/dL
[2023-09-16 14:37] LABS: Microalbumin Urine Random 0.8 mg/dL (0-1.6)
== END ==
PROVIDERS: PCP Family Medicine; Referring Provider Family Medicine; Visit Provider Family Medicine
DX: E03.9 Hypothyroidism, unspecified (principal); R73.09 Other abnormal glucose; Z13.9 Encounter for screening, unspecified; Z13.6 Encounter for screening for cardiovascular disorders; E66.01 Morbid (severe) obesity due to excess calories; Z68.44 Body mass index [BMI] 60.0-69.9, adult
CPT/HCPCS: 36415; 80053; 82043; 82570; 83036; 84439; 84443; 85025

== ENCOUNTER → 2024-03-09 10:49 | Outpatient (CLI) | payer MEDICARE, MEDICAID, SELFPAY ==
[2024-03-09 12:05] LABS: Add Manual Diff / Slide Review NO; Basophils Absolute Auto 100 /uL (0-100); Basophils Percent Auto 0.7 % (0-2); Eosinophils Absolute Auto 200 /uL (0-450); Eosinophils Percent Auto 2.8 % (2-4); Hematocrit 44.4 % (36-46); Hemoglobin 14.7 g/dL (12.0-16.0); Lymphocytes Absolute Auto 2500 /uL (1100-4500); Lymphocytes Percent Auto 29.4 % (25-40); Mean Corpuscular HGB Conc 33.1 % (30-36); Mean Corpuscular Volume 90.5 fL (80-100); Monocytes Absolute Auto 600 /uL (0-900); Monocytes Percent Auto 7.4 % (3-14); Neutrophils Absolute Auto 5100 /uL (1500-7000); Neutrophils Percent Auto 59.7 % (50-75); Platelet Count 287 X10^3/uL (150-400); Red Cell Distribution Width 13.8 % (11.6-14.8); White Blood Cell Count 8.5 X10^3/uL (4.5-11.0)
[2024-03-09 12:17] LABS: Hemoglobin A1C% w Est Avg Glu 5.5 % (4.0-6.0)
[2024-03-09 12:30] LABS: Alanine Aminotransferase 33 IU/L (<35); Albumin 3.8 g/dL (3.5-5.0); Albumin Globulin Ratio 1.2 (1.0-2.8); Alkaline Phosphatase 106 U/L (38-126); Aspartate Aminotransferase 36 IU/L (14-36); BUN Creatinine Ratio 22.8 (6-22); Bilirubin Total 0.6 mg/dL (0.2-1.3); Blood Urea Nitrogen 13 mg/dL (7-17); Calcium 9.2 mg/dL (8.4-10.2); Carbon Dioxide 28 mmol/L (22-32); Chloride 105 mmol/L (98-107); Cholesterol 182 mg/dL (140-199); Estimated Glomerular Filt Rate > 60 mL/min (>60); Globulin 3.3 g/dL (1.7-4.1); Glucose 92 mg/dL (70-100); HDL Cholesterol 63 mg/dL (40-60); HEMOLYSIS < 15 (0-50); LDL Cholesterol Calculated 103 mg/dL (<100); Potassium 4.2 mmol/L (3.4-5.1); Sodium 137 mmol/L (137-145); Total Protein 7.1 g/dL (6.3-8.2); Triglycerides 81 mg/dL (35-150)
[2024-03-09 18:30] LABS: HIV 1 & 2 Ab/Ag 4th Gen Combo NEGATIVE (NEGATIVE)
[2024-03-13 03:52] LABS: Free T4, Direct Thyroxine 1.27 ng/dL (0.78-2.19)
[2024-03-13 04:06] LABS: Thyroid Stimulating Hormone 5.34 uIU/mL (0.47-4.68)
== END ==
PROVIDERS: PCP Family Medicine; Referring Provider Family Medicine; Visit Provider Family Medicine
DX: Z00.00 Encounter for general adult medical examination without abnormal findings (principal); E66.01 Morbid (severe) obesity due to excess calories; Z13.6 Encounter for screening for cardiovascular disorders; E03.9 Hypothyroidism, unspecified; Z68.44 Body mass index [BMI] 60.0-69.9, adult; Z68.43 Body mass index [BMI] 50.0-59.9, adult
CPT/HCPCS: 36415; 80053; 80061; 83036; 84439; 84443; 85025; 87389

== ENCOUNTER → 2024-03-16 11:04 | Outpatient (CLI) | payer MEDICARE, MEDICAID, SELFPAY ==
[2024-03-16 13:37] LABS: C-Reactive Protein Quant 1.2 mg/dL (<1.0)
[2024-03-16 13:40] LABS: Rheumatoid Factor < 8.6 IU/mL (<12.0)
[2024-03-16 14:43] LABS: Erythrocyte Sedimentation Rate 41 MM/HR (0-20)
[2024-03-18 16:18] LABS: CCP Antibodies IgG/IgA 0 units (0-19)
[2024-03-19 16:08] LABS: ANA Screen, IFA Negative (.)
== END ==
LOC: LAB 11:05
PROVIDERS: PCP Family Medicine; Referring Provider Family Medicine; Visit Provider Family Medicine
DX: Z00.00 Encounter for general adult medical examination without abnormal findings (principal); E03.9 Hypothyroidism, unspecified; E66.01 Morbid (severe) obesity due to excess calories; Z82.69 Family history of other diseases of the musculoskeletal system and connective tissue; Z68.44 Body mass index [BMI] 60.0-69.9, adult
CPT/HCPCS: 36415; 85651; 86038; 86140; 86200; 86430

== ENCOUNTER → 2024-06-24 14:07 | Outpatient (CLI) | payer MEDICARE, MEDICAID, SELFPAY ==
[2024-06-25 15:39] LABS: HIV 1 & 2 Ab/Ag 4th Gen Combo NEGATIVE (NEGATIVE); Hep C Virus Ab w/Reflex Quant NEGATIVE s/c (NEGATIVE)
== END ==
PROVIDERS: PCP Family Medicine; Referring Provider Family Medicine; Visit Provider Family Medicine
DX: Z77.21 Contact with and (suspected) exposure to potentially hazardous body fluids (principal); W46.0XXA Contact with hypodermic needle, initial encounter; Y92.009 Unspecified place in unspecified non-institutional (private) residence as the place of occurrence of the external cause
CPT/HCPCS: 36415; 86803; 87389

== ENCOUNTER → 2024-12-28 10:09 | Outpatient (CLI) | payer OTHER, SELFPAY ==
[2024-12-28 10:33] LABS: Add Manual Diff / Slide Review NO; Basophils Absolute Auto 100 /uL (0-100); Basophils Percent Auto 0.9 % (0-2); Eosinophils Absolute Auto 200 /uL (0-450); Eosinophils Percent Auto 2.7 % (2-4); Hematocrit 44.5 % (36-46); Hemoglobin 14.9 g/dL (12.0-16.0); Lymphocytes Absolute Auto 2600 /uL (1100-4500); Lymphocytes Percent Auto 32.3 % (25-40); Mean Corpuscular HGB Conc 33.5 % (30-36); Mean Corpuscular Hemoglobin 30.1 PG (26-34); Mean Corpuscular Volume 89.7 fL (80-100); Monocytes Absolute Auto 500 /uL (0-900); Monocytes Percent Auto 6.7 % (3-14); Neutrophils Absolute Auto 4600 /uL (1500-7000); Neutrophils Percent Auto 57.4 % (50-75); Platelet Count 295 X10^3/uL (150-400); Red Blood Cell Count 4.96 X10^6/uL (4.0-5.2); White Blood Cell Count 8.1 X10^3/uL (4.5-11.0)
[2024-12-28 10:51] LABS: Alanine Aminotransferase 39 IU/L (<35); Albumin 4.2 g/dL (3.5-5.0); Albumin Globulin Ratio 1.3 (1.0-2.8); Alkaline Phosphatase 105 U/L (38-126); Aspartate Aminotransferase 41 IU/L (14-36); BUN Creatinine Ratio 23.7 (6-22); Bilirubin Total 0.5 mg/dL (0.2-1.3); Blood Urea Nitrogen 14 mg/dL (7-17); Calcium 9.1 mg/dL (8.4-10.2); Carbon Dioxide 24 mmol/L (22-32); Chloride 107 mmol/L (98-107); Cholesterol 196 mg/dL (140-199); Estimated Glomerular Filt Rate > 60 mL/min (>60); Globulin 3.3 g/dL (1.7-4.1); Glucose 99 mg/dL (70-100); HDL Cholesterol 66 mg/dL (40-60); HEMOLYSIS < 15 (0-50); LDL Cholesterol Calculated 114 mg/dL (<100); Potassium 4.3 mmol/L (3.4-5.1); Sodium 138 mmol/L (137-145); Total Protein 7.5 g/dL (6.3-8.2); Triglycerides 78 mg/dL (35-150)
[2024-12-28 11:20] LABS: Thyroid Stimulating Hormone 6.13 uIU/mL (0.47-4.68)
[2024-12-28 15:58] LABS: HIV 1 & 2 Ab/Ag 4th Gen Combo NEGATIVE (NEGATIVE); Hep C Virus Ab w/Reflex Quant NEGATIVE s/c (NEGATIVE)
[2024-12-29 07:36] LABS: Hepatitis B Surf Ab Qualitativ Reactive (.)
== END ==
PROVIDERS: PCP Family Medicine; Referring Provider Family Medicine; Visit Provider Family Medicine
DX: Z00.00 Encounter for general adult medical examination without abnormal findings (principal); E03.9 Hypothyroidism, unspecified; W46.0XXD Contact with hypodermic needle, subsequent encounter
CPT/HCPCS: 36415; 80053; 80061; 84439; 84443; 85025; 86706; 86803; 87389

== ENCOUNTER → 2025-01-31 14:30 | Outpatient (CLI) | payer OTHER, SELFPAY ==
[2025-01-31 16:57] LABS: Influenza A - CEPHEID Flu A NEGATIVE (NEGATIVE); Influenza B - CEPHEID Flu B NEGATIVE (NEGATIVE); Respiratory Syncytial Virus Negative (Negative)
[2025-01-31 17:05] LABS: COVID-19 CEPHEID 4-PLEX PCR Negative (Negative)
== END ==
PROVIDERS: PCP Family Medicine; Visit Provider Physician Assistant Surgical
DX: R05.1 Acute cough (principal)
CPT/HCPCS: 0241U

== ENCOUNTER → 2025-05-20 16:59 | Outpatient (CLI) | payer MEDICARE, SELFPAY ==
[2025-05-20 17:54] LABS: Add Manual Diff / Slide Review NO; Basophils Absolute Auto 100 /uL (0-100); Basophils Percent Auto 0.7 % (0-2); Eosinophils Absolute Auto 200 /uL (0-450); Eosinophils Percent Auto 2.2 % (2-4); Hematocrit 45.7 % (36-46); Hemoglobin 15.1 g/dL (12.0-16.0); Lymphocytes Absolute Auto 3200 /uL (1100-4500); Lymphocytes Percent Auto 30.2 % (25-40); Mean Corpuscular HGB Conc 33.1 % (30-36); Mean Corpuscular Hemoglobin 30.3 PG (26-34); Mean Corpuscular Volume 91.6 fL (80-100); Monocytes Absolute Auto 700 /uL (0-900); Monocytes Percent Auto 6.4 % (3-14); Neutrophils Absolute Auto 6400 /uL (1500-7000); Neutrophils Percent Auto 60.5 % (50-75); Platelet Count 291 X10^3/uL (150-400); Red Blood Cell Count 4.98 X10^6/uL (4.0-5.2); Red Cell Distribution Width 13.7 % (11.6-14.8); White Blood Cell Count 10.6 X10^3/uL (4.5-11.0)
[2025-05-20 17:56] LABS: Hemoglobin A1C% w Est Avg Glu 5.4 % (4.0-6.0)
[2025-05-20 18:08] LABS: HEMOLYSIS < 15 (0-50)
[2025-05-20 18:11] LABS: Iron 52 ug/dL (37-170)
[2025-05-20 18:14] LABS: Alanine Aminotransferase 37 IU/L (<35); Albumin 4.1 g/dL (3.5-5.0); Albumin Globulin Ratio 1.2 (1.0-2.8); Alkaline Phosphatase 118 U/L (38-126); Aspartate Aminotransferase 36 IU/L (14-36); BUN Creatinine Ratio 26.7 (6-22); Bilirubin Total 0.3 mg/dL (0.2-1.3); Blood Urea Nitrogen 16 mg/dL (7-17); Calcium 9.2 mg/dL (8.4-10.2); Carbon Dioxide 30 mmol/L (22-32); Chloride 103 mmol/L (98-107); Estimated Glomerular Filt Rate > 60 mL/min (>60); Globulin 3.4 g/dL (1.7-4.1); Glucose 96 mg/dL (70-99); HEMOLYSIS < 15 (0-50); Potassium 4.3 mmol/L (3.4-5.1); Sodium 139 mmol/L (137-145); Total Protein 7.5 g/dL (6.3-8.2); Uric Acid 4.8 mg/dL (2.5-6.2)
[2025-05-20 18:30] LABS: Free T4, Direct Thyroxine 1.03 ng/dL (0.78-2.19)
[2025-05-20 18:49] LABS: Thyroid Stimulating Hormone 7.15 uIU/mL (0.47-4.68)
[2025-05-20 19:00] LABS: HIV 1 & 2 Ab/Ag 4th Gen Combo NEGATIVE (NEGATIVE)
[2025-05-20 19:04] LABS: Vitamin B12 564 pg/mL (239-931)
[2025-05-20 20:45] LABS: Percent Iron Saturation 17 % (15-50); Total Iron Binding Capacity 307 ug/dL (265-497); Transferrin 256 mg/dL (206-381)
== END ==
PROVIDERS: PCP Family Medicine; Referring Provider Family Medicine; Visit Provider Family Medicine
DX: Z00.00 Encounter for general adult medical examination without abnormal findings (principal); E66.01 Morbid (severe) obesity due to excess calories; E03.9 Hypothyroidism, unspecified; Z68.44 Body mass index [BMI] 60.0-69.9, adult
CPT/HCPCS: 36415; 80053; 82607; 83036; 83540; 83550; 84439; 84443; 84550; 85025; 87389

== ENCOUNTER → 2025-11-10 09:51 | Outpatient (CLI) | payer MEDICARE, SELFPAY ==
[2025-11-10 10:13] LABS: Add Manual Diff / Slide Review NO; Hematocrit 44.4 % (36-46); Hemoglobin 14.7 g/dL (12.0-16.0); Lymphocytes Absolute Auto 2600 /uL (1100-4500); Mean Corpuscular HGB Conc 33.2 % (30-36); Mean Corpuscular Hemoglobin 29.8 PG (26-34); Mean Corpuscular Volume 89.7 fL (80-100); Platelet Count 293 X10^3/uL (150-400)
[2025-11-10 10:44] LABS: Alanine Aminotransferase 30 IU/L (<35); Albumin 4.0 g/dL (3.5-5.0); Albumin Globulin Ratio 1.2 (1.0-2.8); Alkaline Phosphatase 107 U/L (38-126); Blood Urea Nitrogen 12 mg/dL (7-17); Calcium 9.2 mg/dL (8.4-10.2); Carbon Dioxide 29 mmol/L (22-32); Chloride 104 mmol/L (98-107); Cholesterol 167 mg/dL (140-199); Estimated Glomerular Filt Rate > 60 mL/min (>60); Globulin 3.4 g/dL (1.7-4.1); Glucose 103 mg/dL (70-99); HDL Cholesterol 60 mg/dL (40-60); HEMOLYSIS < 15 (0-50); Potassium 5.1 mmol/L (3.4-5.1); Sodium 139 mmol/L (137-145); Total Protein 7.4 g/dL (6.3-8.2); Triglycerides 72 mg/dL (35-150)
[2025-11-10 11:12] LABS: TSH w/ Reflex to FT4 4.32 uIU/mL (0.47-4.68)
== END ==
PROVIDERS: PCP Family Medicine; Referring Provider Family Medicine; Visit Provider Family Medicine
DX: Z13.220 Encounter for screening for lipoid disorders (principal); E03.9 Hypothyroidism, unspecified
CPT/HCPCS: 36415; 80053; 80061; 84443; 85025